=== PATIENT | male | born 1980 | race Caucasian/White ===

== ENCOUNTER → 2017-11-20 | Day surgery (SDC) | payer BC ==
[~2017-11-20] MED LIST: BUPIVACAINE/EPINEPHRINE 0.5% PF 30 ML VIAL ONE; KETOROLAC TROMETHAMINE 30 MG/ML (IVP) VIAL IV PUSH ONE; LACTATED RINGER'S 1000 ML INJ 1,000 ML ONE; MEPERIDINE HCL 50 MG/ML VIAL ONE; MIDAZOLAM HCL 2 MG/2 ML VIAL ONE; ONDANSETRON HCL 4 MG/2 ML VIAL IV PUSH ONE; PROPOFOL 200 MG/20 ML AMP IV ONE; ceFAZolin 2 GM PREMIX 50 ML ONE
--- NOTE | 2017-11-20 12:05 | TN ---
cc: Shekhar Gregg MD DATE OF SURGERY: 11/20/2017 PREOPERATIVE DIAGNOSIS: Symptomatic enlarging left inguinoscrotal hernia. POSTOPERATIVE DIAGNOSIS: 1. Symptomatic enlarging left inguinoscrotal hernia. 2. Indirect left inguinal hernia. PROCEDURE PERFORMED: Laparoscopic left inguinal hernia repair with mesh. SURGEON: Shekhar Gregg MD. ANESTHESIA: General LMA. COMPLICATIONS: None. INDICATIONS FOR THE PROCEDURE: Mr. Huynh is a pleasant 37-year-old gentleman who had a symptomatic enlarging left inguinoscrotal hernia. It was protruding down to the proximal portion of his left hemiscrotum. It had gotten larger in the last several months and was causing him significant pain. He was seen and evaluated in the office and offered elective repair. Risks and benefits of repair were discussed with them and he was agreeable to proceed and signed consents. PROCEDURE DETAILS: The patient was identified, brought to the operating room, placed supine on the operating table. After adequate general anesthesia was achieved with LMA, the anterior abdomen and groin were prepped and draped in a standard surgical fashion. 0.25% Marcaine was injected into the skin and subcutaneous tissue in the infraumbilical space. An infraumbilical incision was made. Dissection was carried down to subcutaneous tissue to the anterior rectus fascia. The anterior rectus fascia was then incised sharply. The rectus muscle was identified and retracted laterally. Preperitoneal space was entered with blunt finger dissection. Blunt dissecting balloon was inserted and insufflated with 30 pumps of air under direct vision using 0-degree laparoscope. Next, the balloon dissector was removed and the balloon trocar inserted. The preperitoneal space was then insufflated to 11 mmHg using CO2 gas. Next, two 5 mm trocars were placed in the lower midline under direct vision. Attention was first directed medially were Richard's ligament and pubic tubercle were identified. Dissection proceeded out laterally identifying the cord structures exiting the internal ring with a fairly large indirect inguinal hernia sac. The hernia sac was then carefully dissected off the cord structures using a [id number] technique. It was stripped back away from the internal ring several centimeters. A posterior window was then made behind the cord structures. A piece of polypropylene mesh was inserted with a slit cut for the cord structures. Mesh was placed through the posterior window underneath the cord structures and the slit reapproximated tightening the internal ring using a tacking device. Mesh was then secured medially at Richard's ligament and pubic tubercle and superiorly along the posterior abdominal wall fascia. An onlay mesh was then placed over the first mesh in order to buttress the slit. This mesh was secured medially and laterally. With this, the indirect and direct spaces were well covered by the mesh with generous overlap in all directions. 0.25% Marcaine was injected into the operative field. The large peritoneal hernia sac was then held medially and the preperitoneal space was desufflated and the inferior edge of the mesh was held down. The hernia sac was seen to be above the mesh the entire time during the desufflation. All trocars were then removed under direct vision. The anterior rectus fascia was repaired with a 0 Vicryl in a [id number] fashion. Skin was closed with 4-0 Vicryl. The patient tolerated the procedure well, was awaken and brought to recovery in stable condition. MD NATHANAEL Joseph/JULES , 11:44 AM , 12:03 PM
== END | disposition home or self-care (01) ==
LOC: ESDC 08:38
PROVIDERS: ATTEND Surgery Trauma Surgery
DX: K40.90 Unilateral inguinal hernia, without obstruction or gangrene, not specified as recurrent (principal)
CPT/HCPCS: 00840; 49650; C1727; C1781; J0690; J1885; J2175; J2250; J2405; J3010; J7120